=== PATIENT | female | born 1975 | race Caucasian/White ===

== ENCOUNTER 2017-12-05 22:55 | Emergency (ER) | payer MEDICAID, OTHER ==
[~2017-12-05] VITALS: Ht 170.2 cm; Wt 68.2 kg
[~2017-12-05 22:55] MED LIST: ALB0.5UD IH; CYCL-1 PO; DIPH-518 PO; EFAV1TAB PO; ESCI10TA PO; KEP500T PO; ONDA4TAB12 PO
[2017-12-05 23:19] VITALS: BP 115/49
[2017-12-06] MEDS ORDERED: METH500T PO ×2 (00:51→00:52)
[2017-12-06] MEDS ORDERED: ONDA4TAB9 SL (00:51)
[2017-12-06] MEDS ORDERED: METH4TAB3 PO (00:58)
[2017-12-06] MEDS ORDERED: acetaminophen 325mg tablet PO ONE (01:00)
[2017-12-06] MEDS ORDERED: dexamethasone 4mg tablet PO ONE (01:00)
[2017-12-06] MEDS ORDERED: predniSONE 20 mg tablet PO ONE (01:05)
== END 2017-12-06 01:31 | disposition home or self-care (01) ==
LOC: ER 22:55
DX: S39.012A Strain of muscle, fascia and tendon of lower back, initial encounter (principal); M62.838 Other muscle spasm; G89.29 Other chronic pain; F12.10 Cannabis abuse, uncomplicated; I25.10 Atherosclerotic heart disease of native coronary artery without angina pectoris; J45.909 Unspecified asthma, uncomplicated; Z86.14 Personal history of Methicillin resistant Staphylococcus aureus infection; Z90.49 Acquired absence of other specified parts of digestive tract; Z98.61 Coronary angioplasty status; Z88.0 Allergy status to penicillin; Z88.5 Allergy status to narcotic agent; Z88.6 Allergy status to analgesic agent; Z88.8 Allergy status to other drugs, medicaments and biological substances; Z79.899 Other long term (current) drug therapy; Z59.0 Homelessness
CPT/HCPCS: 99283; J7512

== ENCOUNTER 2018-04-26 14:38 | Outpatient (CLI) | payer MEDICAID ==
[~2018-04-26 14:38] MED LIST changes: +METH4TAB3 PO; +METH500T PO
== END 2018-04-26 23:59 | disposition home or self-care (01) ==
LOC: CARD DIAG 14:38
PROVIDERS: ATTEND Family Medicine
DX: I07.1 Rheumatic tricuspid insufficiency (principal); I37.2 Nonrheumatic pulmonary valve stenosis with insufficiency
CPT/HCPCS: 93306

== ENCOUNTER 2018-12-24 06:13 | Day surgery (SDC) | payer MEDICAID ==
[2018-12-16 11:04] LABS: BASOPHILS % (AUTO) 0.3 % (0-1); EOSINOPHILS # (AUTO) 0.1 X10'3 (0-0.9); EOSINOPHILS % (AUTO) 1.7 % (0-6); LYMPHOCYTES # (AUTO) 1.8 X10'3 (1.1-4.8); LYMPHOCYTES % (AUTO) 28.7 % (21-51); MEAN CORPUSCULAR HEMOGLOBIN 34.4 PG (27.0-31.0); MEAN CORPUSCULAR HGB CONC 35.4 g/dL (33.0-36.5); MEAN CORPUSCULAR VOLUME 97.2 FL (78-98); MEAN PLATELET VOLUME 7.9 FL (7.4-10.4); MONOCYTES # (AUTO) 0.4 X10'3 (0-0.9); MONOCYTES % (AUTO) 6.6 % (2-12); NEUTROPHILS # (AUTO) 3.9 X10'3 (1.8-7.7); NEUTROPHILS % (AUTO) 62.7 % (42-75); PRE OP HEMATOCRIT 43.3 % (35.0-45.0); PRE OP HEMOGLOBIN 15.3 g/dL (12.0-16.0); PRE OP PLATELET COUNT 256 X10'3 (140-440); RED BLOOD COUNT 4.45 X10'6 (4.20-5.60); RED CELL DISTRIBUTION WIDTH 13.5 % (11.5-14.5)
[2018-12-16 11:17] LABS: ALBUMIN 3.7 G/DL (3.4-5.0); ALBUMIN/GLOBULIN RATIO 0.7 (1.1-1.5); ALKALINE PHOSPHATASE 92 IU/L (46-116); BLOOD UREA NITROGEN 22 MG/DL (7-18); BUN/CREATININE RATIO 23.9 (6.6-38.0); CALCIUM 9.4 MG/DL (8.5-10.1); CHLORIDE 104 MMOL/L (99-107); CREATININE 0.92 MG/DL (0.40-0.90); PRE OP ALT 33 U/L (30-65); PRE OP ANION GAP 3 (8-16); PRE OP AST 20 U/L (10-37); PRE OP BILIRUB, TOTAL 0.3 MG/DL (0.0-1.0); PRE OP GLUCOSE 92 MG/DL (70-104); PRE OP POTASSIUM 4.4 MMOL/L (3.4-5.1); PRE OP SODIUM 137 MMOL/L (135-145); TOTAL CARBON DIOXIDE 29.8 MMOL/L (24-32); TOTAL PROTEIN 8.8 G/DL (6.4-8.2); eGFR 66 ML/MIN
[2018-12-16 11:20] LABS: PRE OP INR 1.1 INR; PRE OP PROTIME 10.7 SECONDS (9.0-12.0)
[~2018-12-24] VITALS: Ht 170.2 cm; Wt 66.8 kg
[~2018-12-24 06:13] MED LIST changes: +ABAC1TAB14 PO; +ATOR40TA PO; -CYCL-1 PO; -DIPH-518 PO; -EFAV1TAB PO; -ESCI10TA PO; +HYDR10SY14 PO; -KEP500T PO; -METH4TAB3 PO; -METH500T PO; +NAPR-996 PO; -ONDA4TAB12 PO
[2018-12-24] MEDS ORDERED: BUPIVAcaine/PF 2.5mg/ml (0.25%) 10ml vial ONE (06:41)
[2018-12-24] MEDS ORDERED: ringers solution, lacted 1,000 ML IV SCH (07:00)
[2018-12-24] MEDS ORDERED: clindamycin 600mg/D5W 50ml 50 ML IV ONE (07:00)
[2018-12-24] MEDS ORDERED: albuterol 2.5 MG/3 ML nebule NEB ONE (07:00)
[2018-12-24] MEDS ORDERED: famotidine 20mg tablet PO ONE (07:00)
[2018-12-24] MEDS ORDERED: LIDOcaine 1% (10mg/ml) 2ml vial ONE (07:05)
[2018-12-24 07:34] VITALS: BP 98/72
[2018-12-24 07:38] VITALS: BP 98/72
[2018-12-24] MEDS ORDERED: LIDOcaine 0.5% (5mg/ml) 50ml vial ONE (09:02)
[2018-12-24] MEDS ORDERED: fentaNYL/PF 50MCG/1 ML 2ML syringe ONE (09:08)
[2018-12-24] MEDS ORDERED: midazolam 2 mg/2 ml injection ONE ×2 (09:17→09:31)
[2018-12-24] MEDS ORDERED: propofol inj 20 ML IV ONE (09:32)
[2018-12-24 09:33] VITALS: BP 79/52
--- NOTE | 2018-12-24 09:33 | NUR ---
Received from OR via [facility] , accompanied by Anesthesiologist REGINO and report given by Anesthesiolgist. PATIENT WITH 22G PIV IN LEFT UE RUNNING LR AT 100. DENIES PAIN. + CAP REFILL. RIGHT WRIST DRESSING IS CDI. + CAP REFILL AND SENSATION. VSS Addendum: 12/24/18 at 1020 by Niraj Rodriguez RN, RN Amended: Links added.
[2018-12-24 09:43] VITALS: BP 80/48
[2018-12-24 09:53] VITALS: BP 91/55
[2018-12-24 10:03] VITALS: BP 96/58
== END 2018-12-24 10:13 | disposition home or self-care (01) ==
LOC: PAS 06:13
PROVIDERS: ATTEND Orthopaedic Surgery Hand Surgery
DX: G56.01 Carpal tunnel syndrome, right upper limb (principal); F17.210 Nicotine dependence, cigarettes, uncomplicated; Z79.899 Other long term (current) drug therapy; Z88.0 Allergy status to penicillin; Z88.8 Allergy status to other drugs, medicaments and biological substances; Z90.49 Acquired absence of other specified parts of digestive tract; Z90.710 Acquired absence of both cervix and uterus; Z98.890 Other specified postprocedural states; Z72.89 Other problems related to lifestyle; Z95.1 Presence of aortocoronary bypass graft
CPT/HCPCS: 29848; 36415; 71046; 80053; 82948; 85025; 85610; 85730; 93005; 94640; 94760; J2001; J2250; J2704; J3010; J3490; A6449; A7000; J7120

== ENCOUNTER 2019-03-19 07:26 | Emergency (ER) | payer MEDICAID ==
[~2019-03-19] VITALS: Ht 170.2 cm; Wt 65.0 kg
[2019-03-19 07:29] VITALS: BP 120/63
[2019-03-19] MEDS ORDERED: acetaminophen 325mg tablet PO ONE (07:55)
[2019-03-19] MEDS ORDERED: mag hydrox/Alum hydrox/simeth 30ml oral suspension PO ONE (07:55)
[2019-03-19] MEDS ORDERED: LIDOcaine Viscous 15ml cup PO ONE (07:55)
[2019-03-19] MEDS ORDERED: FLUC100T PO (08:09)
[2019-03-19] MEDS ORDERED: fluconazole 100mg tablet PO ONE (08:10)
== END 2019-03-19 08:46 | disposition home or self-care (01) ==
LOC: ER 07:27
DX: B37.0 Candidal stomatitis (principal); I25.10 Atherosclerotic heart disease of native coronary artery without angina pectoris; J45.909 Unspecified asthma, uncomplicated; G89.29 Other chronic pain; F41.9 Anxiety disorder, unspecified; F31.9 Bipolar disorder, unspecified; G35 Multiple sclerosis; F12.90 Cannabis use, unspecified, uncomplicated; Z86.14 Personal history of Methicillin resistant Staphylococcus aureus infection; Z86.69 Personal history of other diseases of the nervous system and sense organs; Z98.61 Coronary angioplasty status; Z90.49 Acquired absence of other specified parts of digestive tract; Z98.890 Other specified postprocedural states; Z87.891 Personal history of nicotine dependence; Z59.0 Homelessness; Z88.0 Allergy status to penicillin; Z88.5 Allergy status to narcotic agent; Z88.8 Allergy status to other drugs, medicaments and biological substances; Z79.899 Other long term (current) drug therapy
CPT/HCPCS: 99284

== ENCOUNTER 2019-06-11 10:02 | Emergency (ER) | payer MEDICAID ==
[~2019-06-11] VITALS: Ht 170.2 cm; Wt 69.4 kg
[2019-06-11 11:33] VITALS: BP 124/73
[2019-06-11] MEDS ORDERED: CLIN300C70 PO (11:51)
[2019-06-11] MEDS ORDERED: IBUP-1984 PO (11:51)
== END 2019-06-11 11:56 | disposition home or self-care (01) ==
LOC: ER 10:03
DX: K08.89 Other specified disorders of teeth and supporting structures (principal); G35 Multiple sclerosis; I25.10 Atherosclerotic heart disease of native coronary artery without angina pectoris; J45.909 Unspecified asthma, uncomplicated; G89.29 Other chronic pain; F12.90 Cannabis use, unspecified, uncomplicated; Z59.0 Homelessness; Z95.5 Presence of coronary angioplasty implant and graft; Z90.49 Acquired absence of other specified parts of digestive tract; Z98.890 Other specified postprocedural states; Z86.14 Personal history of Methicillin resistant Staphylococcus aureus infection; Z79.899 Other long term (current) drug therapy; Z88.0 Allergy status to penicillin; Z88.5 Allergy status to narcotic agent; Z88.6 Allergy status to analgesic agent
CPT/HCPCS: 99283

== ENCOUNTER 2020-04-06 06:08 | Day surgery (SDC) | payer MEDICAID ==
[2020-03-30 12:08] LABS: BASOPHILS % (AUTO) 0.5 % (0-1); EOSINOPHILS # (AUTO) 0.1 X10'3 (0-0.9); EOSINOPHILS % (AUTO) 2.1 % (0-6); LYMPHOCYTES # (AUTO) 1.4 X10'3 (1.1-4.8); LYMPHOCYTES % (AUTO) 28.3 % (21-51); MEAN CORPUSCULAR HEMOGLOBIN 32.7 PG (27.0-31.0); MEAN CORPUSCULAR HGB CONC 33.6 g/dL (33.0-36.5); MEAN CORPUSCULAR VOLUME 97.3 FL (78-98); MEAN PLATELET VOLUME 8.9 FL (7.4-10.4); MONOCYTES # (AUTO) 0.6 X10'3 (0-0.9); MONOCYTES % (AUTO) 11.1 % (2-12); NEUTROPHILS # (AUTO) 2.9 X10'3 (1.8-7.7); PRE OP HEMATOCRIT 44.5 % (35.0-45.0); PRE OP PLATELET COUNT 238 X10'3 (140-440); RED BLOOD COUNT 4.57 X10'6 (4.20-5.60); RED CELL DISTRIBUTION WIDTH 12.9 % (11.5-14.5)
[2020-03-30 12:37] LABS: ALBUMIN 3.6 G/DL (3.4-5.0); ALBUMIN/GLOBULIN RATIO 0.7 (1.1-1.5); ALKALINE PHOSPHATASE 97 IU/L (46-116); BLOOD UREA NITROGEN 19 MG/DL (7-18); BUN/CREATININE RATIO 23.2 (6.6-38.0); CALCIUM 8.9 MG/DL (8.5-10.1); CHLORIDE 105 MMOL/L (99-107); CREATININE 0.82 MG/DL (0.40-0.90); PRE OP ALT 51 U/L (30-65); PRE OP ANION GAP 6 (8-16); PRE OP AST 41 U/L (10-37); PRE OP BILIRUB, TOTAL 0.4 MG/DL (0.0-1.0); PRE OP GLUCOSE 67 MG/DL (70-104); PRE OP SODIUM 139 MMOL/L (135-145); TOTAL PROTEIN 8.7 G/DL (6.4-8.2); eGFR 75 ML/MIN
[2020-03-30 12:38] LABS: PRE OP POTASSIUM 3.8 MMOL/L (3.4-5.1)
[~2020-04-06] VITALS: Ht 162.6 cm; Wt 69.7 kg
[2020-04-06] VITALS (7 sets, daily range): BP systolic 81–105; BP diastolic 46–61
[~2020-04-06 06:08] MED LIST changes: -ABAC1TAB14 PO; -ALB0.5UD IH; +EFAV1TAB PO; -HYDR10SY14 PO; +MULT-85 PO; +clindamycin-Cleocin 900mg/D5W 50 ML IV ONE; +famotidine 20mg tablet PO ONE; +ringers solution, lacted 1,000 ML IV SCH
[2020-04-06] MEDS ORDERED: BUPIVAcaine/PF 2.5mg/ml (0.25%) 10ml vial ONE (06:40)
[2020-04-06] MEDS ORDERED: LIDOcaine 0.5% (5mg/ml) 50ml vial ONE (08:59)
[2020-04-06] MEDS ORDERED: ringers solution, lacted 1,000 ML IV SCH (09:02)
[2020-04-06] MEDS ORDERED: acetaminophen 1,000mg/100ml IV 100 ML IV PRN (09:05)
[2020-04-06] MEDS ORDERED: ondansetron/PF 4mg/2ml inj IV PRN (09:05)
[2020-04-06] MEDS ORDERED: morphine 4 MG/ML inj SYRINge IV PRN (09:05)
[2020-04-06] MEDS ORDERED: meperidine/PF 25mg/ml syringe IV PRN ×3 (09:05)
[2020-04-06] MEDS ORDERED: morphine 2 MG/ML inj. syringe IV PRN (09:05)
[2020-04-06] MEDS ORDERED: fentaNYL/PF 50MCG/1 ML 2ML syringe ONE (09:28)
[2020-04-06] MEDS ORDERED: MIDAZolam 5mg/5ml vial ONE (09:40)
[2020-04-06] MEDS ORDERED: propofol inj 20 ML IV ONE (09:52)
--- NOTE | 2020-04-06 09:57 | NUR ---
Received from OR via [facility], accompanied by Anesthesiologist DR MANZO and report given by Anesthesiologist. 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 Addendum: 04/06/20 at 1007 by Sophia Price RN Amended: Links added.
--- NOTE | 2020-04-06 10:57 | NUR ---
D/C INSTRUCTIONS GIVEN AND GONE OVER W/PT WHO VERBALIZED UNDERSTANDING, PT D/CD TO HOME VIA W/C TO PRIVATE VEHICLE W/O INCIDENT. Addendum: 04/06/20 at 1102 by Sopiha Price RN Amended: Links added.
== END 2020-04-06 10:57 | disposition home or self-care (01) ==
LOC: PAS 06:08
PROVIDERS: ATTEND Orthopaedic Surgery Hand Surgery
DX: G56.02 Carpal tunnel syndrome, left upper limb (principal); J45.909 Unspecified asthma, uncomplicated; G40.909 Epilepsy, unspecified, not intractable, without status epilepticus; Z20.828 Contact with and (suspected) exposure to other viral communicable diseases; Z79.899 Other long term (current) drug therapy; Z87.891 Personal history of nicotine dependence; Z90.49 Acquired absence of other specified parts of digestive tract; Z98.890 Other specified postprocedural states; Z90.710 Acquired absence of both cervix and uterus; Z88.0 Allergy status to penicillin; Z88.8 Allergy status to other drugs, medicaments and biological substances; Z72.89 Other problems related to lifestyle
CPT/HCPCS: 29848; 36415; 80053; 82948; 85025; 87635; 93005; J2001; J2250; J2704; J3010; J3490; A4215; A7000; J7120

== ENCOUNTER 2025-03-21 07:05 | Emergency (ER) | payer MEDICAID, OTHER ==
[~2025-03-21] VITALS: Ht 162.6 cm; Wt 76.3 kg
[~2025-03-21 07:05] MED LIST changes: +NAPR-1168 PO; -NAPR-996 PO; -clindamycin-Cleocin 900mg/D5W 50 ML IV ONE; -famotidine 20mg tablet PO ONE; -ringers solution, lacted 1,000 ML IV SCH
--- NOTE | 2025-03-21 07:11 | ELECTROCARDIOGRAPH REPORT ---
[facility] Test Date: 2025-03-21 Test Time: 07:09:27 Pat Name: FOREIGN WEST Department: EMERGENCY ROOM Room: Gender: F Direct Service Provider: TRAV : 1975 Requested By: DANNI CORTES Order Number: [id number] Reading MD: Measurements Intervals [place] Rate: 71 P: 23 NE: 148 QRS: 48 QRSD: 81 T: 56 QT: 384 QTc: 418 Interpretive Statements Sinus rhythm Atrial premature complex Low voltage, precordial leads Please click the below link to view image of tracing.
[2025-03-21 07:29] VITALS: TEMP 98.1
[2025-03-21 07:29] LABS: MEAN PLATELET VOLUME 8.3 FL (7.4-10.4); RED CELL DISTRIBUTION WIDTH 12.9 % (11.5-14.5)
[2025-03-21 07:53] LABS: CREATININE 0.87 MG/DL (0.40-0.90); PRO BRAIN NATRIURETIC PEPTIDE < 30 PG/ML (0-125); TOTAL CARBON DIOXIDE 26.6 MMOL/L (24-32); eCRCL 66 ML/MIN; eGFR 69 ML/MIN
--- NOTE | 2025-03-21 07:55 | RADIOLOGY REPORT ---
CHEST RADIOGRAPH Indication: CP Technique: Single frontal view of the chest was obtained Comparison: None FINDINGS: Lines and Tubes: None Lungs: No focal consolidation. Pleura: No effusion. No pneumothorax. Cardiomediastinal contours: Unremarkable Bones: No acute osseous abnormality. IMPRESSION: 1. No acute cardiopulmonary disease.
--- NOTE | 2025-03-21 08:02 | Physician Documentation ---
History of Present Illness ~ Chief Complaint: Chest Pain Stated Complaint: CP SOB Time Seen by MD: 07:25 Primary Medical Doctor: [facility] Mode of Arrival: Ambulatory HPI 50-year-old female who presents with left-sided chest pain. She tells me that she felt normal yesterday including when she went to bed. When she woke up this morning and was going to work, she had a mild headache in the left side of her head. This resolved. She then developed pain in the left side of her chest. She states it is around the left lower lateral chest. It is worse with certain movements and with deep breathing. She then started to feel short of breath so she came to the ER. She denies any fevers or other infectious symptoms, no congestion, sore throat, productive cough. She does have a chronic cough related to smoking marijuana. No abdominal pain or acid reflux. No vomiting or diarrhea. No leg pain or swelling. 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 Medication Reconciliation Allergies: Coded Allergies: Penicillins (Verified Allergy, Severe, ANAPHYLAXIS, 03/21/25) codeine (Verified Allergy, Mild, rash, 03/21/25) ketorolac (Verified Allergy, Mild, rash, 03/21/25) promethazine (Verified Adverse Reaction, Mild, gi, 03/21/25) Scheduled Atorvastatin Calcium* (Lipitor*), 1 TABLET PO HS, (Reported) Efavirenz/Emtricitab/Tenofovir (Atripla Tablet), 1 TAB PO HS, (Reported) Multivit with Calcium,Iron,Min (Multiple Vitamins For Women), 1 TAB PO HS, (Reported) Scheduled PRN Methocarbamol (Methocarbamol), 1 TAB PO Q12H PRN for muscle spasms Naproxen (Naproxen), 1 TAB PO Q12H PRN for P, (Reported) Past Medical History Past Medical History: Multiple Sclerosis, Seizures, Aortic Stenosis, Coronary Artery Disease, Asthma, Pneumonia, Chronic Pain, Chronic Back Pain, HIV, MRSA Abscess, Anxiety, Bipolar, Psychosis Past Surgical History: angioplasty, cholecystectomy, Alcohol Use: Sober Drug Use: marijuana Lives In: Homeless Occupation: disabled Review of Systems Constitutional: Denies: fever Respiratory: Reports: shortness of breath Cardiovascular: Reports: chest pain Gastrointestinal: Denies: abdominal pain Physical Exam Vital Signs: Temperature: 98.1, Source: Oral, Heart Rate: 68, Respiratory Rate: 13, BP: 111/79, Pulse Oximetry: 97, Weight: 76.300 Oxygen Flow Rate: 0 Physical Exam General: This is a pleasant and overall well-appearing middle-aged woman, not in distress Heart: Regular rate and rhythm, normal-appearing peripheral perfusion Lungs: normal work of breathing, normal oxygen saturation on room air, the patient does have few scattered expiratory wheezes, but no crackles or consolidation Chest wall: Mild reproducible tenderness on palpation of the left lateral chest and ribs, with no overlying rash Abdomen: Soft, nondistended, nontender all quadrants including in the left upper quadrant Extremities: Warm and well-perfused, no edema, no posterior calf tenderness Neuro: Alert and oriented Psychiatric: Calm and cooperative with exam Progress Results/Orders Results/Orders Orders - DANNI CORTES MD Chest,Single View (03/21/25 07:06) Monitor (03/21/25 07:06) Saline Lock (03/21/25 07:06) Oxygen (03/21/25 07:06) Hs Troponin I W Calculations (03/21/25 10:06) Completed Orders - DANNI CORTES MD Chest,Single View (03/21/25 07:06) Cbc/Diff (03/21/25 07:06) BMP (03/21/25 07:06) PBNP (03/21/25 07:06) Electrocardiogram (03/21/25 07:06) Hs Troponin I W Calculations (03/21/25 07:06) Hs Troponin I W Calculations (03/21/25 09:06) Aspirin 81mg Chew Tablet (Aspirin 81mg C (03/21/25 08:00) D-Dimer (03/21/25 08:02) Lidocaine 5% Patch (Lidoderm 5% Patch) (03/21/25 10:00) Vital Signs 03/21/25 03/21/25 03/21/25 03/21/25 07:08 07:29 07:29 08:46 Temp 98.7 98.1 Pulse 78 68 Resp 16 13 B/P (MAP) 116/77 111/79 (90) Pulse Ox 98 97 O2 Delivery Room Air* O2 Flow Rate 0 0 0 FiO2 21 03/21/25 03/21/25 08:52 10:21 Pulse 52 78 Resp 17 B/P (MAP) 131/82 (98) 118/84 Pulse Ox 98 98 O2 Flow Rate 0 Laboratory Tests Test 03/21/25 07:17 03/21/25 09:13 White Blood Count 6.5 Red Blood Count 4.57 Hemoglobin 14.8 Hematocrit 43.1 Mean Corpuscular Volume 94.3 Mean Corpuscular Hemoglobin 32.5 H Mean Corpuscular Hemoglobin Concent 34.4 Red Cell Distribution Width 12.9 Platelet Count 308 Mean Platelet Volume 8.3 Neutrophils (%) (Auto) 58.5 Lymphocytes (%) (Auto) 31.0 Monocytes (%) (Auto) 8.1 Eosinophils (%) (Auto) 2.1 Basophils (%) (Auto) 0.3 Neutrophils # (Auto) 3.8 Lymphocytes # (Auto) 2.0 Monocytes # (Auto) 0.5 Eosinophils # (Auto) 0.1 Basophils # (Auto) 0.0 CBC Comment D-Dimer < 0.19 D-Dimer Comment Sodium Level 138 Potassium Level 3.7 Chloride Level 104 Carbon Dioxide Level 26.6 Anion Gap 7 L Blood Urea Nitrogen 24 H Creatinine 0.87 Estimated GFR/1.73 m2 69 BUN/Creatinine Ratio 27.6 H Glucose Level 117 H Calcium Level 9.0 Troponin I High Sensitivity 5 4 Pro-B-Type Natriuretic Peptide < 30 Albumin 4.3 Chemistry Comments Troponin I High Sens Percent Delta 20 Troponin I Hi Sens Absolute Change -1 EKG/XRAY/CT/US/VASC/MRI EKG : Additional Comment I personally interpreted the EKG and this shows: Sinus rhythm, rate 71, QTC 418, no STEMI, no acute ischemic changes Chest X-Ray : Additional Comments I personally reviewed the x-ray, and it shows: No acute process including no pneumothorax, focal consolidation or mass Heart Score: Heart Score Response (Comments) Value History Slightly Suspicious 0 EKG Normal 0 Age 45-64 1 Risk Factors 1 or 2 risk factors 1 Troponin Normal limit 0 Total 2 Medical Decision Making Differential Dx:Considerations: Include: angina, aortic dissection, chest wall pain, CHF, costochondritis, gastritis, myocardial infarction, pericarditis, pulmonary embolus Additional Information The patient presents with sudden onset of left-sided chest pain and shortness of breath. Her workup was unremarkable, no evidence of ACS, PE, or other dangerous heart or lung problem. No rash to suggest zoster. Overall this appears most consistent with musculoskeletal pain. After shared decision-making conversation, she felt comfortable returning home, with a muscle relaxant and symptomatic treatment. Return precautions were given if she does develop worsening symptoms or concerns Departure Time of Disposition: 10:01 Disposition: 01 HOME / SELF CARE / HOMELESS Impression: Primary Impression: Chest pain Condition: Stable Discharge Instructions: Chest Wall Pain Referrals: NO PRIMARY CARE PROVIDER (PCP) Prescriptions Methocarbamol (Methocarbamol) 500 Mg Tablet 1 TAB PO Q12H PRN for muscle spasms for 30 Days, #20 TAB 0 Refills Prov: DANNI CORTES MD 03/21/25 Education Educated: Patient Educated regarding: diagnosis, treatment, need for follow up Signature Scribe Signature: esteban Attestation: DANNI Moses MD Mar 21, 2025 08:02
[2025-03-21 08:52] VITALS: RESP 17
[2025-03-21] MEDS ORDERED: METH-797 PO (10:02)
[2025-03-21 10:21] VITALS: BP 118/84; PULSE 78; O2SAT 98
== END 2025-03-21 10:24 | disposition home or self-care (01) ==
LOC: ER 07:06
DX: R07.2 Precordial pain (principal); G89.29 Other chronic pain; F31.9 Bipolar disorder, unspecified; F41.9 Anxiety disorder, unspecified; I25.10 Atherosclerotic heart disease of native coronary artery without angina pectoris; J45.909 Unspecified asthma, uncomplicated; F12.90 Cannabis use, unspecified, uncomplicated; Z88.0 Allergy status to penicillin; Z88.5 Allergy status to narcotic agent; Z90.49 Acquired absence of other specified parts of digestive tract; Z88.8 Allergy status to other drugs, medicaments and biological substances; Z79.899 Other long term (current) drug therapy; Z59.00 Homelessness unspecified
CPT/HCPCS: 36415; 71045; 80048; 83880; 84484; 85025; 85379; 93005; 99285

== ENCOUNTER 2025-04-11 08:20 | Emergency (ER) | payer OTHER ==
[~2025-04-11] VITALS: Ht 162.6 cm; Wt 73.6 kg
[~2025-04-11 08:20] MED LIST changes: +METH-797 PO
--- NOTE | 2025-04-11 08:26 | ELECTROCARDIOGRAPH REPORT ---
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 Sandro Krishna Measurements Intervals [place] Rate: 61 P: -7 [place]: 154 QRS: 63 QRSD: 76 T: 58 QT: 403 QTc: 406 Interpretive Statements Sinus rhythm Baseline wander in lead(s) I Electronically Signed On 04-12-2025 19:18:[address] Sandro Krishna Please click the below link to view image of tracing.
--- NOTE | 2025-04-11 08:54 | Physician Documentation ---
History of Present Illness ~ Chief Complaint: Chest Pain Stated Complaint: CHEST TIGHTNESS Time Seen by MD: 08:54 Primary Medical Doctor: [facility] Mode of Arrival: POV HPI 50-year-old female presenting with viral type symptoms and chest tightness She tells me that she felt well yesterday until in the evening when she suddenly developed congestion, sore throat, chills, and a cough. Was around a friend's child who had similar symptoms recently. This morning she woke up and felt chest tightness. She states it feels like it is hard to take a deep breath and she feels wheezy. The tightness is in the center of her chest and through to the back of her chest. She does report a history of asthma when she was younger but has not had to use an inhaler in about 10 years. No abdominal pain, nausea vomiting or diarrhea. No history of heart problems. Medication Reconciliation Allergies: Coded Allergies: Penicillins (Verified Allergy, Severe, ANAPHYLAXIS, 04/11/25) codeine (Verified Allergy, Mild, rash, 04/11/25) ketorolac (Verified Allergy, Mild, rash, 04/11/25) promethazine (Verified Adverse Reaction, Mild, gi, 04/11/25) Scheduled Atorvastatin Calcium* (Lipitor*), 1 TABLET PO HS, (Reported) Efavirenz/Emtricitab/Tenofovir (Atripla Tablet), 1 TAB PO HS, (Reported) Multivit with Calcium,Iron,Min (Multiple Vitamins For Women), 1 TAB PO HS, (Reported) Prednisone* (Prednisone*), 2 TAB PO DAILY Scheduled PRN Methocarbamol (Methocarbamol), 1 TAB PO Q12H PRN for muscle spasms Naproxen (Naproxen), 1 TAB PO Q12H PRN for P, (Reported) albuterol inhaler (Pro-Air Inhaler), 2 PUFFS INH Q4HPRN PRN for wheezing Past Medical History Past Medical History: Multiple Sclerosis, Seizures, Aortic Stenosis, Coronary Artery Disease, Asthma, Pneumonia, Chronic Pain, Chronic Back Pain, HIV, MRSA Abscess, Anxiety, Bipolar, Psychosis Past Surgical History: angioplasty, cholecystectomy, Alcohol Use: Sober Drug Use: marijuana Lives In: Homeless Occupation: disabled Review of Systems Constitutional: Reports: chills Respiratory: Reports: cough Cardiovascular: Denies: chest pain Gastrointestinal: Denies: abdominal pain Physical Exam Vital Signs: Temperature: 98.1, Source: Oral, Heart Rate: 76, Respiratory Rate: 18, BP: 172/96, Pulse Oximetry: 98, Weight: 73.600 Oxygen Flow Rate: 0 Physical Exam General: This is a pleasant and nontoxic appearing middle-aged woman, with a frequent cough HEENT: Wearing a mask Heart: Regular rate and rhythm, normal-appearing peripheral perfusion Lungs: Tight breath sounds bilateral, the expiratory wheezes diffusely, prolonged expiratory phase, otherwise normal work of breathing, normal oxygen saturation on room air Neuro: Alert and oriented Psychiatric: Calm and cooperative with exam Progress Results/Orders Results/Orders Orders - DANNI CORTES MD Chest,Single View (04/11/25 08:25) Monitor (04/11/25 08:25) Saline Lock (04/11/25 08:25) Oxygen (04/11/25 08:25) Hs Troponin I W Calculations (04/11/25 10:25) Hs Troponin I W Calculations (04/11/25 11:25) Completed Orders - DANNI CORTES MD Chest,Single View (04/11/25 08:25) Cbc/Diff (04/11/25 08:25) BMP (04/11/25 08:25) PBNP (04/11/25 08:25) Electrocardiogram (04/11/25 08:25) Hs Troponin I W Calculations (04/11/25 08:25) Albuterol 2.5mg/3ml Nebule (Proventil 2. (04/11/25 09:05) * Rt Notification Q1H (04/11/25 09:04) Prednisone Tablet (Prednisone Tablet) (04/11/25 09:05) Medications Received in ER Medications (Trade) Dose Ordered Sig/Lana Route PRN Reason Start Time Stop Time Status Last Admin Dose Admin (Proventil 2.5 MG/3ML nebule) 2.5 mg ONCE ONCE NEB 04/11/25 09:05 04/11/25 09:06 DC 04/11/25 09:11 2.5 MG (predniSONE tablet) 40 mg ONCE ONCE PO 04/11/25 09:05 04/11/25 09:06 DC 04/11/25 09:44 40 MG Vital Signs 04/11/25 04/11/25 04/11/2504/11/25 08:21 08:30 09:12 09:19 Temp 98.1 Pulse 76 52 56 Resp 18 22 18 B/P (MAP) 172/96 Pulse Ox 98 99 98 O2 Delivery Room Air* Room Air* O2 Flow Rate 0 0 0 FiO2 21 04/11/25 09:51 Temp 98.1 Pulse 67 Resp 13 B/P (MAP) 154/86 Pulse Ox 98 Laboratory Tests Test 04/11/25 08:53 White Blood Count 6.7 Red Blood Count 4.47 Hemoglobin 14.4 Hematocrit 41.9 Mean Corpuscular Volume 93.9 Mean Corpuscular Hemoglobin 32.2 H Mean Corpuscular Hemoglobin Concent 34.3 Red Cell Distribution Width 12.8 Platelet Count 309 Mean Platelet Volume 8.5 Neutrophils (%) (Auto) 65.3 Lymphocytes (%) (Auto) 24.5 Monocytes (%) (Auto) 8.2 Eosinophils (%) (Auto) 1.6 Basophils (%) (Auto) 0.4 Neutrophils # (Auto) 4.4 Lymphocytes # (Auto) 1.6 Monocytes # (Auto) 0.6 Eosinophils # (Auto) 0.1 Basophils # (Auto) 0.0 CBC Comment Sodium Level 142 Potassium Level 4.3 Chloride Level 109 H Carbon Dioxide Level 27.0 Anion Gap 6 L Blood Urea Nitrogen 21 H Creatinine 0.88 Estimated GFR/1.73 m2 68 BUN/Creatinine Ratio 23.9 H Glucose Level 100 Calcium Level 8.8 Troponin I High Sensitivity 5 Pro-B-Type Natriuretic Peptide 95 Albumin 3.7 Chemistry Comments EKG/XRAY/CT/US/VASC/MRI EKG : Additional Comment I personally interpreted the EKG and this shows: Sinus rhythm, rate 61, QTC 406, no STEMI or acute ischemic changes Chest X-Ray : Additional Comments I personally interpreted the x-ray, and it shows: No focal consolidation to suggest pneumonia, no pulmonary edema, no pneumothorax Medical Decision Making Differential Dx:Considerations: Include: angina, chest wall pain, costochondritis, gastritis, myocardial infarction, pneumonia Additional Information Differential includes viral syndrome, COVID-19, asthma type reaction Assessment The patient presents with viral type symptoms and chest tightness. Here in the ED she has findings consistent with wheezing and asthma type reaction, with a hi story of similar. Chest x-ray without pneumonia. EKG is reassuring and there was no evidence to suggest a heart related process. She was given steroids and an albuterol nebulizer with good improvement. She will be discharged with prednisone and an albuterol inhaler. I did offer to do a COVID swab but she declined. Return precautions given. Departure Time of Disposition: 09:32 Disposition: 01 HOME / SELF CARE / HOMELESS Impression: Primary Impression: Asthma exacerbation Additional Impression: Viral URI with cough Condition: Improved Discharge Instructions: Asthma Attack Departure Forms: Excuse form Work or School Excused From: Work Excuse beginning now through the following date: Apr 17, 2025 Additional Instructions: Deedee has a viral infection and is currently contagious. Please excuse her from work for the next 1 week, although she can return sooner as per your work place policy or if her symptoms are improving Referrals: NO PRIMARY CARE PROVIDER (PCP) Prescriptions Prednisone* (Prednisone*) 20 Mg Tablet 2 TAB PO DAILY for 4 Days, #8 TAB Prov: DANNI CORTES MD 04/11/25 albuterol inhaler (Pro-Air Inhaler) 8.5 Gm Inhaler 2 PUFFS INH Q4HPRN PRN for wheezing for 30 Days, #18 GM Prov: DANNI CORTES MD 04/11/25 Education Educated: Patient Educated regarding: diagnosis, treatment, prognosis, need for follow up Signature Scribe Signature: esteban Attestation: DANNI Moses MD Apr 11, 2025 08:54
--- NOTE | 2025-04-11 09:01 | RADIOLOGY REPORT ---
EXAM: DI CHEST,SINGLE VIEW Indication: CP Technique: Single frontal view of the chest was obtained Comparison: DI CHEST,SINGLE VIEW on DOS: 03/21/25 FINDINGS: Lines and Tubes: None Lungs: No focal consolidation. Pleura: No effusion. No pneumothorax. Cardiomediastinal contours: Unremarkable Bones: No acute osseous abnormality. IMPRESSION: No acute cardiopulmonary disease.
[2025-04-11] MEDS: albuterol 2.5 MG/3 ML nebule NEB ONE (09:11)
[2025-04-11 09:12] VITALS: PULSE 52; RESP 22; O2SAT 99
[2025-04-11 09:18] LABS: MEAN PLATELET VOLUME 8.5 FL (7.4-10.4); RED CELL DISTRIBUTION WIDTH 12.8 % (11.5-14.5)
[2025-04-11 09:19] VITALS: PULSE 56; RESP 18; O2SAT 98
[2025-04-11 09:21] LABS: CREATININE 0.88 MG/DL (0.40-0.90); PRO BRAIN NATRIURETIC PEPTIDE 95 PG/ML (0-125); TOTAL CARBON DIOXIDE 27.0 MMOL/L (24-32); eCRCL 65 ML/MIN; eGFR 68 ML/MIN
[2025-04-11] MEDS ORDERED: PRED20TA PO (09:34)
[2025-04-11] MEDS ORDERED: ALBU8HFA INH (09:34)
[2025-04-11 09:51] VITALS: BP 154/86; PULSE 67; RESP 13; TEMP 98.1; O2SAT 98
== END 2025-04-11 09:54 | disposition home or self-care (01) ==
LOC: ER 08:20
DX: J45.901 Unspecified asthma with (acute) exacerbation (principal); J06.9 Acute upper respiratory infection, unspecified; R05.9 Cough, unspecified; G89.29 Other chronic pain; F31.9 Bipolar disorder, unspecified; I25.10 Atherosclerotic heart disease of native coronary artery without angina pectoris; F12.90 Cannabis use, unspecified, uncomplicated; Z88.0 Allergy status to penicillin; Z88.5 Allergy status to narcotic agent; Z88.8 Allergy status to other drugs, medicaments and biological substances; Z90.49 Acquired absence of other specified parts of digestive tract; Z86.14 Personal history of Methicillin resistant Staphylococcus aureus infection; Z79.899 Other long term (current) drug therapy; Z59.00 Homelessness unspecified
CPT/HCPCS: 36415; 71045; 80048; 83880; 84484; 85025; 93005; 94640; 99285; J7512; 94760